=== PATIENT | female | born 1990 | race Caucasian/White ===

== ENCOUNTER 2016-11-30 21:19 | Emergency (ER) | payer SELFPAY ==
[2016-11-30 21:31] VITALS: TEMP 98.1; BMI 38.8
[2016-11-30] MEDS ORDERED: METOCLOPRAMIDE 10 MG/2 ML VIAL IV ONE (21:47)
[2016-11-30] MEDS ORDERED: LORAZEPAM 2 MG/ML VIAL IV ONE (21:47)
[2016-11-30] MEDS ORDERED: NS 1,000 ML IV ONE ×2 (21:47→23:00)
[2016-11-30] MEDS ORDERED: DIPHENHYDRAMINE 50 MG/ML VIAL IV ONE (21:48)
[2016-11-30] MEDS ORDERED: KETOROLAC TROMETH 30 MG/ML VIAL IV ONE (21:48)
--- NOTE | 2016-11-30 22:11 | EDPRACDOC ---
- General Information Chief Complaint: Headache Stated Complaint: HEADACHE Time Seen by Provider: 11/30/16 21:42 Information Source: Patient Mode Of Arrival: Car Home Medications: Home Medications Promethazine Dextromethorphan [Phenergan DM] 5 ml PO Q6 PRN #120 ml 10/23/16 Ketorolac Tromethamine [Toradol] 10 mg PO Q6H PRN #20 tab 11/30/16 Lorazepam [Ativan] 1 mg PO TID PRN #10 tab 11/30/16 Allergies/Adverse Reactions: Allergies Allergy/AdvReac Type Severity Reaction Status Date / Time Penicillins Allergy Severe Anaphylaxis Verified 10/23/16 16:35 * - History of Present Illness Onset: 2 DAYS AGO HPI: PT PRESENTS WITH A GENERALIZED HEADACHE THAT SHE STATES BEGAN 2 DAYS AGO. SHE STATES SHE HAS PHOTOPHOBIA, NAUSEA AND VOMITING. PT ALSO STATES SHE IS HAVING BILATERAL ARM AND HAND TINGLING AND NUMBNESS, AND SHOB. PT STATES SHE IS UNDER A GREAT DEAL OF STRESS AT THIS TIME IN HER LIFE. PT HAS PMH OF CLUSTER HEADACHE AND STATES IT HAS BEEN SEVERAL YEARS SINCE SHE HAS HAD ONE. DENIES FEVER, CHILLS OR NECK PAIN OR STIFFNESS. Location: Reports: Generalized Pain Quality: Reports: Moderate Modifying Factors: improves with: Exposure to light Prior work up: Denies: NO, O, CT, LP, MRI, Neurologist Relevant History of: Reports: Known Headache disorder Associated Signs and Symptoms: Reports: Occasional Headache, Nausea/Vomiting, Vision Changes. Denies: Stiff Neck ED Past Medical History - History Reviewed Yes Nurses notes reviewed and agree except as marked - Patient Medical History GI/ History: Denies: Urinary Tract Infection Psychological History: Reports: Anxiety, Bipolar Disorder, Substance Use Disorder (Hx. of Meth Abuse.). Denies: Depression Surgical History: Reports: Tonsillectomy/Adnoidectomy, Other ([facility] x2) - Social Medical History Smoking Status: Former smoker Social History: Reports: Substance Use Disorder (Hx. of Meth Abuse.) EDM Review of Systems - Review of Systems ROS Negative Except as Marked: Yes All systems reviewed and were negative except as marked - Physical Exam Constitutional: Alert Oriented to: Time, Person, Place Last recorded Vital Signs: Last Vital Signs Temp 98.1 F 11/30/16 21:27 Pulse 90 11/30/16 21:27 Resp 20 11/30/16 21:27 BP 121/55 L 11/30/16 21:27 Pulse Ox 99 11/30/16 21:27 Oxygen Pulse Oxygen Saturation 99 O2 Device Room Air Oxygen Flow Rate Fraction of Inspired Oxygen ( FIO2) - HEENT Head: Normal ( normocephalic) Eye Exam: Normal (PERRL, EOMI, Sclera white) Oropharynx: Normal (Pharynx:Moist without exudate,Gums-no swelling) Nose: No Symptoms Reported (septum midline) Neck: Normal (FROM, trachea at midline) - Respiratory/Cardiovascular Respiratory: Normal - CTA (BBS clear to auscultation without adventitious sounds ) Cardiovascular: Normal (RRR without murmur, gallop or rub) - GI Auscultation: Normal (NABS) Palpation: Normal (Soft,No rebound or guarding, non distended) Tenderness: Non tender Keller's Sign: Negative Rectal Exam: Deferred - Musculoskeletal Back: Normal (Non-Tender) Extremities: Normal (Normal tone, Pulses 2+ No cyanosis or edema, FROM) - Integumentary Skin: Normal, Warm, Dry Lymphatics: Normal (no adenopathy) - Neurologic Memory Impaired: Normal Motor Function: Normal (Normal tone, Pulses 2+ No cyanosis or edema, FROM) Cranial Nerve: Normal (CN II-X11 intact sensation, strength 5/5) Cerebellar: Normal Mood Description: Normal Perception: Normal - Differential Diagnosis Cluster, Migraine - Re-evaluation Re-evaluation 1 Re-evaluation Time: 22:50 (PT STATES HER HEADACHE IS MUCH BETTER AT THIS POINT. BP IS DOWN, WILL CONTINUE WITH FLUIDS AND MONITORING) Re-evaluation 2 Re-evaluation Time: 23:40 (PT FEELING MUCH BETTER AT THIS POINT) Decision Time to Discharge: 23:40 - Departure Disposition: Home Condition: Stable Final Diagnosis: Migraine Instructions: Migraine Headache (ED) Education/Counseling Given To: Patient Education/Counseling Given Regarding: Diagnosis, Treatment, Prognosis, Follow Up Referrals: Andrei Pulliam MD [Staff Physician] - One Week Junior Barajas MD [Staff Physician] - One Week Prescriptions: New Ketorolac Tromethamine [Toradol] 10 mg PO Q6H PRN #20 tab PRN Reason: Pain Lorazepam [Ativan] 1 mg PO TID PRN #10 tab PRN Reason: Anxiety No Action Promethazine Dextromethorphan [Phenergan DM] 5 ml PO Q6 PRN #120 ml PRN Reason: Cough Additional Instructions: FOLLOW UP WITH PCP NEXT WEEK. RETURN TO THE ED FOR WORSENING SYMPTOMS OR CONCERNS. IF HEADACHES CONTINUE FOLLOW UP WITH NEUROLOGIST.
[2016-12-01 00:29] VITALS: BP 104/51; PULSE 70
== END 2016-12-01 00:26 | disposition home or self-care (01) ==
LOC: ED 21:19
DX: G43.909 Migraine, unspecified, not intractable, without status migrainosus (principal)
CPT/HCPCS: 96361; 96374; 96375; 99284; J1200; J1885; J2060; J2765